=== PATIENT | male | born 1995 | race Two or more races ===

== ENCOUNTER 2024-06-09 21:36 | Emergency (ER) | payer SELFPAY ==
[~2024-06-09] VITALS: Ht 175.3 cm; Wt 88.5 kg
[2024-06-09 21:39] VITALS: TEMP 98
[2024-06-09] MEDS ORDERED: KETOROLAC TROMETHAMINE INJ 30 MG/ML VIAL ONE (21:53)
[2024-06-09] MEDS: KETOROLAC TROMETHAMINE INJ 30 MG/ML VIAL IM ONE (22:00)
[2024-06-09] MEDS ORDERED: NAPR-1009 PO (23:17)
[2024-06-09 23:31] VITALS: BP 137/78; O2SAT 98
== END 2024-06-09 23:32 | disposition home or self-care (01) ==
LOC: ER 21:43
DX: S20.229A Contusion of unspecified back wall of thorax, initial encounter (principal); R07.89 Other chest pain; M54.2 Cervicalgia; V43.52XA Car driver injured in collision with other type car in traffic accident, initial encounter; Y93.89 Activity, other specified; Y92.488 Other paved roadways as the place of occurrence of the external cause; Y99.8 Other external cause status
CPT/HCPCS: 99285; 72125; 96372; 71250; 74176; J1885